=== PATIENT | female | born 1970 | race Caucasian/White ===

== ENCOUNTER 2018-10-31 23:44 | Emergency (ER) | payer SELFPAY ==
[~2018-10-31] VITALS: Ht 157.5 cm; Wt 63.2 kg
[2018-10-31 23:58] VITALS: Ht 157.5 cm; Wt 63.2 kg
[2018-11-01] MEDS ORDERED: CEFTRIAXONE 1 GM/50 ML (PMX) 50 ML IVPB STA (01:49)
[2018-11-01] MEDS ORDERED: KETOROLAC 30 MG INJ IV STA (01:49)
--- NOTE | 2018-11-01 03:02 | ERD ---
ER Documentation Chief Complaint Chief Complaint right flank pain x 2 days HPI 48-year-old female presenting with dysuria for the past 2 days. She was taking cranberry pills and felt like she was getting better. However today she started developing bilateral flank pain, right greater than left, throbbing, 9 out of 10 in intensity. No alleviating or exacerbating factors. The pain is constant. She has not tried to take anything for the pain. She also has dysuria. She is drinking plenty of water. She has not noted any fevers or chills at home. She has associated lower abdominal pain as well. No nausea or vomiting. ROS All systems reviewed and are negative except as per history of present illness. Medications Home Meds Active Scripts Ciprofloxacin Hcl* (Ciprofloxacin Hcl*) 500 Mg Tablet, 500 MG PO BID for 7 Days, TAB Prov:SAURABH SHUKLA MD 11/01/18 Allergies Allergies: Coded Allergies: No Known Allergy (Unverified , 03/03/13) PMhx/Soc Medical and Surgical Hx: pt denies Medical Hx History of Surgery: No ( x2, ovarian cyst removal) Anesthesia Reaction: No Hx Neurological Disorder: No Hx Respiratory Disorders: No Hx Cardiac Disorders: No Hx Psychiatric Problems: No Hx Miscellaneous Medical Probl: Yes (Cystitis) Hx Alcohol Use: No Hx Substance Use: No Hx Tobacco Use: No Smoking Status: Never smoker FmHx Family History: No diabetes Physical Exam Vitals Vital Signs Date Temp Pulse Resp B/P (MAP) Pulse Ox O2 O2 Flow FiO2 Time Delivery Rate 10/31/18 100.0 98 20 160/69 98 23:58 (99) Physical Exam Const: No acute distress nontoxic, well-appearing Head: Atraumatic Eyes: Normal Conjunctiva ENT: Normal External Ears, Nose and Mouth. Neck: Full range of motion. No meningismus. Resp: Clear to auscultation bilaterally Cardio: Regular rate and rhythm, no murmurs Abd: Soft, minimal lower abdominal tenderness with no rebound or guarding, non distended. Normal bowel sounds Skin: No petechiae or rashes Back: bilateral flank tenderness, right greater than left. Ext: No cyanosis, or edema Neur: Awake and alert Psych: Normal Mood and Affect Results 24 hrs Laboratory Tests Test 11/01/18 01:48 11/01/18 01:55 11/01/18 02:01 Urine Color COLORLESS Urine Clarity CLEAR Urine pH 6.0 Urine Specific [place] 1.001 Urine Ketones NEGATIVE mg/dL Urine Nitrite NEGATIVE mg/dL Urine Bilirubin NEGATIVE mg/dL Urine Urobilinogen NEGATIVE mg/dL Urine Leukocyte Esterase TRACE [place]/ul Urine Microscopic RBC 0 /HPF Urine Microscopic WBC 1 /HPF Urine Bacteria FEW /HPF Urine Hemoglobin 2+ mg/dL Urine Glucose NEGATIVE mg/dL Urine Total Protein NEGATIVE mg/dl Bedside Urine pH (LAB) 6.0 Bedside Urine Protein (LAB) Negative Bedside Urine Glucose (UA) Negative Bedside Urine Ketones (LAB) Negative Bedside Urine Blood 2+ Bedside Urine Nitrite (LAB) Negative Bedside Urine Leukocyte Esterase (L 1+ POC Beta HCG, Qualitative NEGATIVE Current Medications Medications Dose Sig/Ruth Start Time Status Last (Trade) Ordered Route PRN Stop Time Admin Dose Reason Admin Ketorolac 30 mg ONCE STAT 11/01/18 DC 11/01/18 Tromethamine IV 01:49 11/01/18 02:09 (Toradol) 01:50 Ceftriaxone 50 ml @ ONCE STAT 11/01/18 DC 11/01/18 Sodium 100 mls/hr IVPB 01:49 11/01/18 02:09 02:18 Procedures/MDM EMERGENT LABS AND DIAGNOSTIC STUDIES: Lab Results above were reviewed and interpreted by me. UA: Evidence of possible infection Urine culture pending negative Initial Nursing notes reviewed. Previous Medical Records requested via the Electronic Health Record. EMERGENCY DEPARTMENT COURSE / MEDICAL DECISION MAKING: Patient is presenting with dysuria and flank pain, concerning for possible pyelonephritis. However I do not suspect severe sepsis or septic shock. Urinalysis shows evidence of UTI. Culture is pending. She was given a dose of ceftriaxone and Toradol here. She states she feels much better upon reevaluation. I will start her on Cipro twice daily for 7 days. Return precautions were discussed. Low suspicion for acute surgical abdomen or ureterolithiasis. Patient's blood pressure was elevated (>120/80) but appears stable without evidence of hypertensive emergency or urgency. The patient was counseled about the risks of hypertension and urged to pursue outpatient monitoring and therapy within a week with their primary care physician. Departure Diagnosis: Primary Impression: UTI (urinary tract infection) Urinary tract infection type: acute pyelonephritis Qualified Codes: N10 - Acute pyelonephritis Condition: Stable SAURABH SHUKLA MD November 01, 2018 03:02
[2018-11-01] MEDS ORDERED: CIPR500T4 PO (03:04)
[2018-11-01 03:41] VITALS: BP 117/68; PULSE 67; RESP 16
== END 2018-11-01 03:42 | disposition home or self-care (01) ==
LOC: E/R 23:44
DX: N10 Acute pyelonephritis (principal)
CPT/HCPCS: 81001; 81025; 87086; 96365; 96375; 99284; J0696; J1885; 81003